=== PATIENT | female | born 1960 | race Caucasian/White ===

== ENCOUNTER → 2020-01-30 12:25 | Outpatient (CLI) | payer OTHER, SELFPAY ==
--- NOTE | ~2020-01-30 | XR_ITS ---
EXAMINATION: XR ribs LT 2V DATE: 01/30/2020 12:58 INDICATION: Left lower lateral rib pain. Pleurodynia. TECHNIQUE: 2 views of the left ribs on 3 radiographs were obtained. COMPARISON: None. FINDINGS: There is no left-sided pneumonia, pleural effusion, or pneumothorax. The heart size is norm al. Surgical clips in the right upper quadrant are likely from cholecystectomy. IMPRESSION: 1. No fracture. Reviewed, dictated and finalized at location A. 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 No fracture.
== END ==
PROVIDERS: Visit Provider Internal Medicine
DX: Z12.31 Encounter for screening mammogram for malignant neoplasm of breast (principal); R07.81 Pleurodynia
CPT/HCPCS: 71100

== ENCOUNTER → 2020-02-29 07:17 | Outpatient (CLI) | payer OTHER, SELFPAY ==
--- NOTE | ~2020-02-29 | MM_ITS ---
EXAMINATION: MM screening kathleen BI w [facility] HISTORY: Screening mammogram TECHNIQUE: Craniocaudal and mediolateral oblique 3-D tomosynthesis images were obtained and synthetic 2-D images were generated. CAD analysis was submitted and interpreted. COMPARISON: 06/07/2013 bilateral digital screening mammogram BREAST PARENCHYMAL COMPOSITION: There are scattered areas of fibroglandular density. FINDINGS: There are new microcalcifications bilaterally. Bilateral diagnostic mammography with magnif ication views is recommended. IMPRESSION: 1. New bilateral microcalcifications 2. Bilateral diagnostic mammogram with magnification views is recommended BI-RADS Category 0: Incomplete: Needs additional imaging evaluation. Reviewed, dictated and finalized at location A.
== END ==
PROVIDERS: PCP Internal Medicine; Visit Provider Internal Medicine
DX: Z12.31 Encounter for screening mammogram for malignant neoplasm of breast (principal); R92.8 Other abnormal and inconclusive findings on diagnostic imaging of breast
CPT/HCPCS: 77063; 77067

== ENCOUNTER 2020-03-25 12:51 | Outpatient (CLI) | payer OTHER, SELFPAY ==
--- NOTE | ~2020-03-25 | MM_ITS ---
EXAMINATION: MM diagnostic mammo BI HISTORY: Follow-up breast calcifications TECHNIQUE: Additional 3-D tomosynthesis images of the breasts were performed and synthetic 2-D images were generated. Additional spot magnification views performed. CAD analysis was submitted and interp reted. COMPARISON: 03/25/2020 FINDINGS: Breast composed of scattered areas of fibroglandular density. There is a cluster of pleomor phic calcifications in the lower inner quadrant of the right breast anteriorly. There is a cluster of regional calcifications in the upper outer quadrant of the left breast which are nonspecific. No oscar picious masses or architectural distortion. IMPRESSION: 1. Bilateral clusters of calcifications involving the lower inner quadrant of the right breast in the upper outer quadrant of the left breast. 2. Recommend stereotactic bilateral breast biopsy. BI-RADS category 4, suspicious findings. Reviewed, dictated and finalized at location A. IMPRESSION: 1. Bilateral clusters of calcifications involving the lower inner quadrant of t he right breast in the upper outer quadrant of the left breast. 2. Recommend stereotactic bilateral breast biopsy. BI-RADS category 4, suspicious findings.
== END 2020-03-25 12:52 | disposition home or self-care (01) ==
LOC: ANHIMG 12:54
PROVIDERS: PCP Internal Medicine; Visit Provider Internal Medicine
DX: R92.8 Other abnormal and inconclusive findings on diagnostic imaging of breast (principal)
CPT/HCPCS: 77066